=== PATIENT | female | born 1985 | race Asian ===

== ENCOUNTER → 2017-11-17 | Outpatient (CLI) | payer OTHER | END | disposition home or self-care (01) | LOC: LB 07:25 | DX: N92.1 Excessive and frequent menstruation with irregular cycle (principal) | CPT/HCPCS: 82670 ==

== ENCOUNTER 2017-12-11 13:46 | Emergency (ER) | payer OTHER ==
[~2017-12-11] VITALS: Ht 152.4 cm; Wt 44.0 kg
[2017-12-11 13:51] VITALS: Ht 152.4 cm; Wt 44.0 kg
[2017-12-11 17:01] VITALS: BP 104/68
== END 2017-12-11 17:01 | disposition home or self-care (01) ==
LOC: ED 13:46
DX: R10.30 Lower abdominal pain, unspecified (principal); R11.2 Nausea with vomiting, unspecified
CPT/HCPCS: J1885; Q0162

== ENCOUNTER 2018-02-12 09:28 | Emergency (ER) | payer OTHER ==
[~2018-02-12] VITALS: Ht 152.4 cm; Wt 44.5 kg
[2018-02-12 09:31] VITALS: Ht 152.4 cm; Wt 44.5 kg
[2018-02-12 11:07] VITALS: BP 125/72
== END 2018-02-12 11:07 | disposition home or self-care (01) ==
LOC: ED 09:28
DX: O09.811 Supervision of pregnancy resulting from assisted reproductive technology, first trimester (principal)

== ENCOUNTER → 2018-02-15 | Outpatient (CLI) | payer OTHER | END | disposition home or self-care (01) | LOC: LB 16:41 | DX: N92.6 Irregular menstruation, unspecified (principal) ==

== ENCOUNTER → 2018-02-17 | Outpatient (CLI) | payer OTHER | END | disposition home or self-care (01) | LOC: LB 15:55 | DX: O20.0 Threatened abortion (principal) ==

== ENCOUNTER → 2018-04-20 | Outpatient (CLI) | payer OTHER | END | disposition home or self-care (01) | LOC: LB 16:15 | DX: E34.9 Endocrine disorder, unspecified (principal) | CPT/HCPCS: 82670 ==

== ENCOUNTER → 2018-04-25 | Outpatient (CLI) | payer OTHER | END | disposition home or self-care (01) | LOC: LB 07:09 | DX: E34.9 Endocrine disorder, unspecified (principal) | CPT/HCPCS: 82670 ==

== ENCOUNTER → 2018-05-03 | Outpatient (CLI) | payer OTHER | END | disposition home or self-care (01) | LOC: LB 08:46 | DX: N92.6 Irregular menstruation, unspecified (principal) | CPT/HCPCS: 82670 ==

== ENCOUNTER → 2018-07-28 | Outpatient (CLI) | payer OTHER ==
[2018-07-30 10:45] LABS: ESTRADIOL 23.9 pg/mL (.)
== END | disposition home or self-care (01) ==
LOC: LB 16:55
PROVIDERS: Internal Medicine
DX: N92.6 Irregular menstruation, unspecified (principal)
CPT/HCPCS: 82670

== ENCOUNTER → 2018-08-25 | Outpatient (CLI) | payer OTHER | END | disposition home or self-care (01) | LOC: LB 15:59 | DX: N91.2 Amenorrhea, unspecified (principal) ==

== ENCOUNTER → 2018-08-27 | Outpatient (CLI) | payer OTHER | END | disposition home or self-care (01) | LOC: LB 13:23 | DX: N91.2 Amenorrhea, unspecified (principal) ==

== ENCOUNTER → 2018-08-29 | Outpatient (CLI) | payer OTHER | END | disposition home or self-care (01) | LOC: LB 15:48 | DX: N91.2 Amenorrhea, unspecified (principal) ==

== ENCOUNTER → 2018-09-06 | Outpatient (CLI) | payer OTHER | END | disposition home or self-care (01) | LOC: LB 12:14 | DX: O02.1 Missed abortion (principal) ==

== ENCOUNTER → 2018-09-12 | Outpatient (CLI) | payer OTHER | END | disposition home or self-care (01) | LOC: LB 07:15 | DX: N91.2 Amenorrhea, unspecified (principal) ==

== ENCOUNTER → 2018-10-10 | Outpatient (CLI) | payer OTHER | END | disposition home or self-care (01) | LOC: LB 16:41 | DX: O02.1 Missed abortion (principal) ==

== ENCOUNTER → 2019-02-22 | Outpatient (CLI) | payer OTHER | END | disposition home or self-care (01) | LOC: LB 07:39 | DX: N92.6 Irregular menstruation, unspecified (principal) ==

== ENCOUNTER 2020-08-17 14:31 | Emergency (ER) | payer OTHER ==
[~2020-08-17] VITALS: Ht 152.4 cm; Wt 58.1 kg
[2020-08-17 14:44] VITALS: Ht 152.4 cm; Wt 58.1 kg
[2020-08-17 16:59] VITALS: BP 127/87
== END 2020-08-17 17:29 | disposition home or self-care (01) ==
LOC: ED 14:31
DX: G24.9 Dystonia, unspecified (principal)
CPT/HCPCS: Q0163